=== PATIENT | female | born 1970 | race Caucasian/White ===

== ENCOUNTER 2018-04-07 14:30 | Outpatient (RCR) | payer BC, SELFPAY | END 2018-04-07 14:35 | disposition home or self-care (01) | LOC: PT 14:30 | PROVIDERS: Visit Provider Orthopaedic Surgery | DX: S82.201A Unspecified fracture of shaft of right tibia, initial encounter for closed fracture (principal) | CPT/HCPCS: 97010; 97014; 97016; 97035; 97110; 97116; 97140; 97163; 97164; G0283 ==

== ENCOUNTER → 2018-04-21 13:38 | Outpatient (CLI) | payer BC, SELFPAY ==
--- NOTE | 2018-04-21 13:46 | US_ITS ---
US kidney retroperitoneal comp HISTORY: ITS.REASON: URINARY INCONTINENCE ORDERING PHYSICIAN: Eugenia Mead PATIENT AGE: 47 years Comparison: None FINDINGS: RIGHT KIDNEY:Unremarkable. Normal size and echogenicity. No hydronephrosis LEFT KIDNEY:Unremarkable. No hydronephrosis. Normal size and echogenicity. OTHER FINDINGS: No other pertinent findings IMPRESSION: Unremarkable bilateral renal ultrasound
--- NOTE | 2018-04-21 13:46 | US_ITS ---
US urinary bladder CLINICAL INDICATION: ITS.REASON: URINARY INCONTINENCE ORDERING PHYSICIAN: Eugenia Mead PATIENT AGE: 47 years Comparison: None FINDINGS: Sonographic evaluation performed of the urinary bladder. No obvious bladder mass. There are bilateral ureteral jets. Full volume is calculated to be 474 mL is with calculated post void residual urine of 20 mL's. IMPRESSION: 1. Unremarkable ultrasound of the urinary bladder. 2. Minimal post void residual urine of 20 mL's
== END ==
PROVIDERS: PCP Family Medicine; Visit Provider Nurse Practitioner Family
DX: R32 Unspecified urinary incontinence (principal)
CPT/HCPCS: 76770; 76857

== ENCOUNTER → 2018-05-16 10:17 | Outpatient (CLI) | payer BC, SELFPAY ==
--- NOTE | 2018-05-16 10:48 | XR_ITS ---
XR DEXA axial skeleton HISTORY: ITS.REASON: RT TIBIA FX ORDERING PHYSICIAN: Carlos Persaud MD PATIENT AGE: 47 years COMPARISON: None FINDINGS: The BMD measured at the Left femoral neck is 0.894 g/cm squared with a T score of -1.0. This is considered Normal according to the World Health Organization criteria. Fracture risk is Low. L1 L4 density has a T score of -0.5. IMPRESSION: Normal bone density with low fracture risk. Suggest follow-up exam May 2020
== END ==
PROVIDERS: PCP Family Medicine; Visit Provider Family Medicine
DX: S89.391 Other physeal fracture of lower end of right fibula (principal)
CPT/HCPCS: 77080

== ENCOUNTER → 2018-06-10 08:14 | Outpatient (CLI) | payer BC, SELFPAY ==
[2018-06-10 09:45] LABS: Basophils # 0.1 K/mm3 (0-0.2); Basophils % 0.7 % (0.1-2.0); Eosinophils # 0.2 K/mm3 (0.0-0.4); Eosinophils % 2.4 % (0.1-12.0); Hematocrit 39.1 % (37.0-47.0); Lymphocytes # 2.1 K/mm3 (0.7-4.5); Lymphocytes % 25.9 % (10-50); Mean Corpuscular HGB Conc 33.4 g/dL (31.8-35.4); Mean Corpuscular Hemoglobin 28.7 pg (27.0-31.2); Mean Corpuscular Volume 85.9 fl (81-99); Mean Platelet Volume 7.4 fl (7.4-10.4); Monocytes # 0.4 K/mm3 (0.1-1.0); Monocytes % 5.5 % (1.7-9.3); Neutrophils # 5.3 K/mm3 (1.8-7.8); Neutrophils % 65.5 % (37.0-80.0); Platelet Count 380 K/mm3 (142-424); Red Blood Count 4.55 M/mm3 (4.20-5.40); Red Cell Distribution Width 13.7 % (11.5-17.5); White Blood Count 8.1 K/mm3 (4.8-10.8)
[2018-06-10 10:37] LABS: Alanine Aminotransferase 30 U/L (12-78); Albumin Level 4.2 gm/dL (3.4-5.0); Albumin/Globulin Ratio 1.2 (1.1-1.8); Alkaline Phosphatase 62 U/L (46-116); Anion Gap 15.4 mEq/L (5-15); Aspartate Amino Transferase 15 U/L (15-37); Bilirubin,Total 0.4 mg/dL (0.2-1.0); Blood Urea Nitrogen 14 mg/dL (7-18); Calcium 9.1 mg/dL (8.5-10.1); Carbon Dioxide 26 mmol/L (21.0-32.0); Chloride 103 mmol/L (98-107); Chol/HDL Ratio 3.5 (1-3.5); Cholesterol 201 mg/dL (140-200); Creatinine,Serum 0.96 mg/dL (0.55-1.02); Estimated Glomerular Filt Rate 62 ml/min (>60); GFR (African American) 75 ML/MIN (>60); Globulin 3.4 gm/dl (1.3-3.2); Glucose 113 mg/dL (74-106); HDL Cholesterol 57 mg/dL (29-89); LDL Cholesterol 132 mg/dL (0-130); Potassium 4.4 mmoL/L (3.5-5.1); Sodium 140 mmol/L (136-145); Total Protein,Serum 7.6 gm/dL (6.4-8.2); Triglycerides 60 mg/dL (30-200); VLDL Cholesterol 12 mg/dL (0-40)
[2018-06-12 18:28] LABS: FSH 5.1 mIU/mL (.); LH 4.1 mIU/mL (.)
== END ==
PROVIDERS: Visit Provider Nurse Practitioner Obstetrics & Gynecology
DX: Z01.419 Encounter for gynecological examination (general) (routine) without abnormal findings (principal); I10 Essential (primary) hypertension
CPT/HCPCS: 36415; 80053; 80061; 83001; 83002; 85025

== ENCOUNTER → 2018-07-07 14:54 | Outpatient (CLI) | payer BC, SELFPAY ==
--- NOTE | 2018-07-07 14:55 | MM_ITS ---
MM Dig screening mamm BI w/CAD CAD Screening COMPARISON: Digital mammograms with CAD 09/19/2015 and 6 month follow-up additional views left breast with CAD 05/22/2016 INDICATION: There is no personal or family history of breast cancer TECHNIQUE: Standard CC and MLO images were obtained. R2 CAD reviewed. FINDINGS: There is a markedly and diffusely dense and heterogenic parenchymal pattern definitely lessening the sensitivity there is no new or suspicious lesion in either breast and there are no suspicious microcalcifications. Of mammography. IMPRESSION: Dense parenchyma pattern no suspicious lesion seen BI-RADS Category: 1 Negative RECOMMENDED FOLLOW-UP: 1YR - 1 YEAR FOLLOW-UP (A letter has been sent to the patient regarding results of the study.)
== END ==
PROVIDERS: PCP Family Medicine; Visit Provider Nurse Practitioner Obstetrics & Gynecology
DX: Z12.31 Encounter for screening mammogram for malignant neoplasm of breast (principal)
CPT/HCPCS: 77067

== ENCOUNTER → 2018-07-29 14:26 | Outpatient (CLI) | payer BC, SELFPAY ==
--- NOTE | 2018-07-29 14:28 | US_ITS ---
US transvaginal HISTORY: ITS.REASON: US T/V- Heavy Bleeding ORDERING PHYSICIAN: Gera Ellsworth MD PATIENT AGE: 48 years Comparison: None FINDINGS: The uterus measures 10 x 5 x 7 cm with a combined endometrial thickness of 9 mm. There is an area of increased echogenicity along the right aspect of the uterus on the transverse images possibly related to fibroid versus artifact. No cul-de-sac fluid. There is a 7 mm nabothian cyst. The right ovary is 2.7 x 3 cm. The left ovary is 2 x 1.7 cm. IMPRESSION: Enlarged uterus with possible fibroid on the right
== END ==
PROVIDERS: PCP Family Medicine; Visit Provider Nurse Practitioner Obstetrics & Gynecology
DX: N92.0 Excessive and frequent menstruation with regular cycle (principal)
CPT/HCPCS: 76830

== ENCOUNTER → 2018-10-19 10:23 | Outpatient (CLI) | payer BC, SELFPAY ==
[2018-10-19 10:43] LABS: Urine Pregnancy, HCG Qual. Negative (Negative)
[2018-10-19 10:46] LABS: Basophils # 0.1 K/mm3 (0-0.2); Basophils % 0.7 % (0.1-2.0); Eosinophils # 0.2 K/mm3 (0.0-0.4); Eosinophils % 2.3 % (0.1-12.0); Hematocrit 39.8 % (37.0-47.0); Hemoglobin 12.7 g/dL (12.2-16.2); Lymphocytes # 2.7 K/mm3 (0.7-4.5); Lymphocytes % 28.3 % (10-50); Mean Corpuscular Hemoglobin 27.8 pg (27.0-31.2); Mean Corpuscular Volume 86.9 fl (81-99); Mean Platelet Volume 7.2 fl (7.4-10.4); Monocytes # 0.6 K/mm3 (0.1-1.0); Monocytes % 5.9 % (1.7-9.3); Neutrophils # 5.9 K/mm3 (1.8-7.8); Neutrophils % 62.8 % (37.0-80.0); Platelet Count 462 K/mm3 (142-424); Red Blood Count 4.58 M/mm3 (4.20-5.40); Red Cell Distribution Width 13.8 % (11.5-17.5); White Blood Count 9.5 K/mm3 (4.8-10.8)
[2018-10-19 11:31] LABS: Anion Gap 10.5 mEq/L (5-15); Blood Urea Nitrogen 13 mg/dL (7-18); Calcium 9.1 mg/dL (8.5-10.1); Carbon Dioxide 29 mmol/L (21.0-32.0); Chloride 103 mmol/L (98-107); Creatinine,Serum 0.79 mg/dL (0.55-1.02); Estimated Glomerular Filt Rate 78 ml/min (>60); GFR (African American) 94 ML/MIN (>60); Glucose 86 mg/dL (74-106); Potassium 4.5 mmoL/L (3.5-5.1); Sodium 138 mmol/L (136-145)
== END ==
PROVIDERS: Visit Provider Nurse Practitioner Obstetrics & Gynecology
DX: Z01.818 Encounter for other preprocedural examination (principal); N92.0 Excessive and frequent menstruation with regular cycle
CPT/HCPCS: 36415; 80048; 81025; 85025

== ENCOUNTER → 2020-11-01 20:22 | Outpatient (CLI) | payer BC, SELFPAY | PROVIDERS: Visit Provider Nurse Practitioner Family | DX: Z20.822 Contact with and (suspected) exposure to COVID-19 (principal) | CPT/HCPCS: U0003 ==

== ENCOUNTER → 2020-11-26 15:21 | Outpatient (CLI) | payer BC, SELFPAY ==
--- NOTE | 2020-11-26 15:27 | US_ITS ---
PROCEDURE: US THYROID CLINICAL INDICATION: THYROMEGALY COMPARISON: No exams were available for comparison FINDINGS: Right lobe: 3.7 x 1 x 1.3 cm. 2 mm benign-appearing mixed nodule lower pole. 4 mm by 3 mm slightly hypoechoic nodule lower pole wider than tall somewhat ill-defined. No calcifications. TR level 3 Left lobe: 4.3 x 1.3 x 1.5 cm. No discrete nodule apparent. Isthmus: Unremarkable Additional findings: IMPRESSION: TR level 3 nodule lower pole on the right 4 x 3 mm. Recommend 12 months follow-up Dictated by: Bobby Fleming MD 11/27/2020 15:52 Bobby Fleming MD in [place] 11/27/2020 15:52
== END ==
PROVIDERS: PCP Family Medicine; Visit Provider Nurse Practitioner Family
DX: E01.0 Iodine-deficiency related diffuse (endemic) goiter (principal)
CPT/HCPCS: 76536

== ENCOUNTER 2023-05-14 13:39 | Outpatient (CLI) | payer BC, SELFPAY ==
--- NOTE | 2023-05-14 13:45 | US_ITS ---
FINAL REPORT TECHNIQUE: Ultrasound images of the thyroid were obtained. CLINICAL HISTORY: followup FINDINGS: The right lobe of the thyroid measures 4.3 x 1.1 x 1.3 cm. It is normal in echogenicity. The left lobe of the thyroid measures 3.9 x 1.2 x 1.2 cm. It is normal in echogenicity. 2 right thyroid lobe nodules are seen. Nodule 1: Solid, hypoechoic 2 x 2 x 1 mm, TR 4. Nodule 2: Solid, hypoechoic, 3 x 3 x 3 mm, TR 4. Presumed parathyroid gland is seen on the right. IMPRESSION: No dominant thyroid mass or nodule. No follow-up needed. Reviewed, Interpreted and Dictated by Jaylan Claros III, MD Transcribed by Bobbi Larkin Authenticated and [facility]
--- NOTE | 2023-05-14 13:46 | MM_ITS ---
PROCEDURE INFORMATION: Exam: MG Bilateral Screening 3D Mammography Exam date and time: 05/14/2023 2:22 PM Age: 52 years old Clinical indication: Screening examination TECHNIQUE: Imaging protocol: Bilateral Screening tomosynthesis and 2D mammography including computer-aided detection (CAD) when performed. COMPARISON: 1. MG SCBI MM Dig screening mamm BI w/CAD 07/07/2018 3:07 PM 2. MG DMDXUWAL DIG MAMM-DX UNI LT W/AVS W/CAD 05/22/2016 3:15 PM FINDINGS: MAMMOGRAPHY: Breast composition: The breasts are heterogeneously dense, which may obscure small masses. Mass: Ovoid 1.6 cm mass best seen on tomographic images in the middle third of the right lower inner quadrant Architectural distortion: None. Calcifications: No suspicious calcifications. Asymmetric density: None. Skin thickening: None. Axillary adenopathy: None. IMPRESSION: Patient to be recalled for right breast ultrasound for further evaluation of a right breast mass. ASSESSMENT: BI-RADS Category 0: Incomplete- Need Additional Imaging Evaluation and/or Prior Mammograms for Comparison.
== END 2023-05-14 23:59 ==
LOC: RAD 13:42
PROVIDERS: PCP Family Medicine; Visit Provider Nurse Practitioner
DX: Z12.31 Encounter for screening mammogram for malignant neoplasm of breast (principal); E01.0 Iodine-deficiency related diffuse (endemic) goiter; E78.00 Pure hypercholesterolemia, unspecified
CPT/HCPCS: 76536; 77063; 77067

== ENCOUNTER 2023-05-24 15:33 | Outpatient (CLI) | payer BC, SELFPAY ==
--- NOTE | 2023-05-24 15:42 | US_ITS ---
PROCEDURE INFORMATION: Exam: US Right Breast, Complete Exam date and time: 05/24/2023 3:57 PM Age: 52 years old Clinical indication: Patient recalled for further evaluation of a right breast mass TECHNIQUE: Imaging protocol: Complete ultrasound of all four quadrants of the right breast and the retroareolar regions, including ultrasound of the axilla when performed. COMPARISON: MG MM DIG SCREENING MAMM BI W/CAD 05/14/2023 2:22 PM FINDINGS: Breast: Sonographic images of the right breast including the retroareolar region, all 4 quadrants and the axilla do not demonstrate any solid masses. 1.2 cm cyst in the 6 o'clock axis 4 cm from the nipple most closely corresponding to the mass on mammography. No architectural distortion or acoustical shadowing. No skin thickening or axillary adenopathy. IMPRESSION: Mass on screening mammography corresponds to underlying cystic change sonographically. There is no mammographic evidence of malignancy.Annual bilateral mammographic screening is recommended unless otherwise clinically indicated. ASSESSMENT: BI-RADS Category 2: Benign.
== END 2023-05-24 23:59 ==
LOC: RAD 15:35
PROVIDERS: PCP Family Medicine; Visit Provider Nurse Practitioner
DX: R92.8 Other abnormal and inconclusive findings on diagnostic imaging of breast (principal)
CPT/HCPCS: 76641

== ENCOUNTER 2023-11-29 10:46 | Outpatient (CLI) | payer BC, SELFPAY ==
--- NOTE | 2023-11-29 10:53 | US_ITS ---
FINAL REPORT TECHNIQUE: Sonographic images of the thyroid gland were obtained in the longitudinal and transverse planes. CLINICAL HISTORY: THROIDMEGALY COMPARISON: 05/14/2023 FINDINGS: The right lobe measures 4.3 cm. The right lobe is homogeneous. There is 1 hypoechoic 4 mm lower pole nodule, which was noted on the prior ultrasound of May 2023 and is stable in appearance. The second nodule seen on the previous exam is not well-seen on the current exam. The left lobe measures 4.45 cm. The left lobe is homogeneous. There are no cystic or solid nodules. The isthmus measures 4 mm. This is normal. IMPRESSION: TIRADS category 4 nodule in the lower pole of the right lobe. Based on size, there are no current TI-RADS recommendations regarding follow up. Reviewed, Interpreted and Dictated by Nolvia Garrison MD Transcribed by Diane Spann Authenticated and [facility]
== END 2023-11-29 23:59 | disposition home or self-care (01) ==
LOC: RAD 10:46
PROVIDERS: PCP Nurse Practitioner; Visit Provider Nurse Practitioner
DX: E01.0 Iodine-deficiency related diffuse (endemic) goiter (principal)
CPT/HCPCS: 76536